=== PATIENT | male | born 1995 | race Caucasian/White ===

== ENCOUNTER 2020-12-19 16:17 | Emergency (ER) | payer SELFPAY ==
[2020-12-19 16:21] VITALS: BP 132/85; PULSE 99; RESP 18; TEMP 36.3; O2SAT 98; BMI 23.7
--- NOTE | 2020-12-19 16:29 | W.ED.MALEGU ---
HPI - Male Genitourinary General: Chief complaint: Urogenital-Male Stated complaint: HPV/VISIBLE WARTS Time Seen by Provider: 12/19/20 16:25 Source: patient Mode of arrival: ambulatory Limitations: no limitations History of Present Illness: HPI Narrative: Patient is a 25-year-old male who noticed some genital warts on his scrotal skin a few months ago. He says they were small and have slowly been getting bigger. Because they are getting bigger he was worried and so he is here to be evaluated. He denies any pain, fever, urethral discharge, dysuria, hematuria. Onset (ago): month(s) Associated symptoms: Deny dysuria, nausea or vomiting Review of Systems General: Reports: 10 or more systems reviewed and unremarkable except in HPI and below Const: Denies: fever(s), chills or body aches Eyes: Denies: change in vision or blurry vision ENMT: Denies: throat pain, enlarged tonsils, odynophagia, hoarseness, mouth pain or swelling of lips/tongue Card: Denies: palpitations, irregular heart rhythm, edema or swelling of feet/ankles Resp: Denies: dyspnea, productive cough or non-productive cough GI: Denies: abdominal pain, nausea or vomiting : Denies: flank pain, dysuria, urinary frequency, urinary urgency or urinary hesitancy Musc: Denies: neck pain, back pain or extremity swelling Skin/Breast: Denies: rash, pruritus or erythema Neuro: Denies: headache(s), numbness in extremities or weakness in extremities Endo: Denies: polyuria, polydipsia or tired all the time Physical Exam Const: COMMON NORMALS: no acute distress, average body habitus, patient oriented x3, no limitations, healthy appearing, alert and well nourished HENMT: COMMON NORMALS: normocephalic, atraumatic and moist oral mucous membranes HEAD & SCALP: normocephalic and atraumatic Neck/C-Spine: COMMON NORMALS: no meningeal signs and no JVD Resp: COMMON NORMALS: normal respiratory effort, No retractions, No use of accessory muscles, clear to auscultation bilaterally and percussion normal AUSCULTATION: clear to auscultation bilaterally PERCUSSION: percussion normal Cardio: COMMON NORMALS: no JVD, regular rate, regular rhythm, S1 normal heart sound present, S2 normal heart sound present, No gallops present (Cardio), No clicks present (Cardio), No murmurs present (Cardio), No rub (Cardio) and Peripheral pulses 2+ throughout RATE: regular rate RHYTHM: regular rhythm HEART SOUNDS: S1 normal heart sound present and S2 normal heart sound present PERIPHERAL PULSES: Peripheral pulses 2+ throughout GI: COMMON NORMALS: Normal to inspection, nondistended, normoactive bowel sounds present, Soft to palpation, non-tender, No hepatosplenomegaly present, no masses and no bruits PALPATION: Yes Soft to palpation and Yes No hepatosplenomegaly present : OTHER: He has several small warts and one larger (about 1cm) wart on the skin of his scrotum. None tender, no penile discharge noted. No blisters seen. Extremity: COMMON NORMALS: normal to inspection, full ROM, capillary refill normal, no calf tenderness and no pedal edema Neuro: COMMON NORMALS: patient oriented x3 SENSORIUM/ORIENTATION: Yes alert MENINGEAL SIGNS: Yes no meningeal signs Skin: COMMON NORMALS: no rashes or lesions noted, no wounds, turgor normal, no jaundice, no petechiae and no mottling GENERAL SKIN EXAM: no rashes or lesions noted and turgor normal Course Vital Signs: Vital signs: Vital Signs Temperature 97.3 F L 12/19/20 16:21 Pulse Rate 87 12/19/20 16:47 Respiratory Rate 18 12/19/20 16:47 Blood Pressure 132/84 12/19/20 16:47 Pulse Oximetry 98 12/19/20 16:47 MDM - Male MDM Narrative: Medical decision making narrative: 25 year old male with uncomplicated genital warts. He is given a prescription of topical antineoplastics and is discharged home. He is to f/u with his PCP. Medical Records: Attestation: I reviewed the patient's medical records. Discharge Plan Discharge Patient Disposition: Home Clinical Impression: Genital warts Condition: Stable Prescriptions: New imiquimod 5 % cream in packet See Rx Instructions .ROUTE .COMPLEX Qty: 1 RF: 0 Discharge Orders: Discharge ED (Routine); Ordered 12/19/20 Ordered By: Xochitl Rodriguez Discharge Diet: Usual diet Discharge Activity: Increase activity as tolerated Patient Instructions: Genital Warts - Male, Genital Warts (ED) Activity Restrictions/Additional Instructions: Return for any new or worsening symptoms. Follow-up with your primary care provider within 3 days. Apply the cream 3 times a week at night until the lesions disappear. Apply the cream only on the warts. Coding Level of Care Code ED Wheel Lacer And Truer for Francisco Javierg Fwd Exam Comprehensive
[2020-12-19 16:47] VITALS: BP 132/84; PULSE 87; RESP 18; O2SAT 98
== END 2020-12-19 16:48 | disposition home or self-care (01) ==
LOC: ER 16:34
PROVIDERS: Emergency Provider Family Medicine
DX: A63.0 Anogenital (venereal) warts (principal)
CPT/HCPCS: 12345; 99281

== ENCOUNTER 2021-12-26 08:05 | Emergency (ER) | payer SELFPAY ==
[2021-12-26 08:09] VITALS: BP 138/81; PULSE 92; RESP 16; TEMP 36.6; O2SAT 99; BMI 25.1
--- NOTE | 2021-12-26 08:15 | ED_ITS ---
HPI - General Adult General: Chief complaint: General Medical Stated complaint: allergic reaction? Time Seen by Provider: 12/26/21 08:06 Source: patient Mode of arrival: ambulatory Limitations: no limitations History of Present Illness: Patient is a 26-year-old male who presents to ED today with a complaint of sore throat and swelling over the past 2 to 3 days. He also states yesterday evening he noticed white spots on his tonsils. Patient seems to think the symptoms might be related to an allergic reaction (?). He has not had any abnormal food/drink exposures. Patient is continuing to eat and drink normally. He is controlling his saliva. No muffled voice. No fevers. He has no swelling to lips or tongue or rash. complaint: sore throat Onset (ago): day(s) Pain Consistency: constant Relieving factors: none Associated symptoms: Reports no associated symptoms; Deny chest pain, dyspnea, headache(s), malaise or rash Treatments prior to arrival: none Review of Systems Const: Denies: fever(s), chills, body aches, change in appetite, fatigue or malaise Eyes: Denies: change in vision, blurry vision, photophobia, eye discomfort or eye discharge ENMT: Reports: throat pain, uvular edema (this is apparently normal for patient ), enlarged tonsils and odynophagia; Denies: hoarseness, swelling of lips/tongue, oral sores, dental pain, ear or mastoid pain, ear discharge, nasal discharge, nasal congestion, epistaxis, post nasal drip or sinus pain Card: Denies: chest pain Resp: Denies: dyspnea, productive cough, non-productive cough or chest congestion Musc: Denies: neck pain, back pain, extremity pain or joint pain Skin/Breast: Denies: rash Neuro: Denies: headache(s) All/Imm: Denies: facial swelling or seasonal rhinorrhea PFSH ED PFSH: Family History Grandmother Diabetes Social History Smoking and tobacco status: current every day smoker cigarettes Packs smoked per day: 0.5 Years cigarettes smoked: 10 Alcohol intake: current Alcohol intake frequency: few times a week Physical Exam Const: COMMON NORMALS: no acute distress, average body habitus, patient oriented x3, no limitations, healthy appearing, alert and well nourished GENERAL APPEARANCE: cooperative HENMT: COMMON NORMALS: normocephalic, atraumatic, hearing grossly normal bilaterally, external ears normal, EAC's normal, TM's normal bilaterally, Normal external nose present, Normal nasal mucous membranes and turbinates present, moist oral mucous membranes and gingiva normal HEAD & SCALP: normal to inspection, normocephalic and atraumatic FACE & SINUS: normal facial exam and sinuses nontender NOSE: Normal external nose present and Normal nasal mucous membranes and turbinates present EXTERNAL EAR: Yes external ears normal EXTERNAL AUDITORY CANAL: EAC's normal TYMPANIC MEMBRANE: TM's normal bilaterally MOUTH: Normal oral and palatal mucosa present, lip normal and tongue normal THROAT: uvula midline, abnormal tonsil bilateral (rare exudates present) hypertrophy and uvular edema (this is apparently normal for patient ); no peritonsillar mass OTHER: no muffled voice, controlling secretions normally Eye: COMMON NORMALS: Equal, round and reactive pupils present, EOMs intact bilaterally and conjunctivae normal GENERAL EYE: appearance normal, both eyes and all related structures CONJUNCTIVA: Yes conjunctivae normal PUPIL: Yes Equal, round and reactive pupils present Neck/C-Spine: COMMON NORMALS: full ROM and no lymphadenopathy Resp: COMMON NORMALS: normal respiratory effort and clear to auscultation bilaterally AUSCULTATION: clear to auscultation bilaterally Cardio: COMMON NORMALS: regular rate and regular rhythm RATE: regular rate RHYTHM: regular rhythm Extremity: GENERAL: Yes normal exam except as noted Neuro: COMMON NORMALS: patient oriented x3 SENSORIUM/ORIENTATION: Yes alert Skin: COMMON NORMALS: no rashes or lesions noted GENERAL SKIN EXAM: no rashes or lesions noted Course 2 Vital Signs: Vital signs: Vital Signs Temperature 97.8 F 12/26/21 08:09 Pulse Rate 92 12/26/21 08:09 Respiratory Rate 16 12/26/21 08:09 Blood Pressure 138/81 12/26/21 08:09 Pulse Oximetry 99 12/26/21 08:09 [facility] - General Adult Medical Decision Making Patient here with complaints of a sore throat over the past couple of days. On physical exam he has mild exudative tonsillitis. 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 He has seen ENT for this and uvulectomy has been recommended however patient does not have insurance and wanted to hold off on this procedure. He was diagnosed with anatomic obstruction of his airway so some of his symptoms today are chronic but worsening now that he has swelling to the tonsils. Patient is eating and drinking normally. He has no respiratory distress on exam. He is controlling his secretions normally. Go ahead and give patient IM dexamethasone here and place patient on antibiotics as a precaution. Recommend he follow-up with ENT if symptoms persist. Strict return to ED precautions verbally given. Lab Data Laboratory Results Group A Strep Rapid Negative (Negative) 12/26/21 08:15 Discharge Plan Discharge Patient Disposition: Home Clinical Impression: Hypertrophy of uvula, Acute tonsillitis Condition: Stable Prescriptions: New amoxicillin 500 mg capsule 1,000 mg PO DAILY 10 Days Qty: 40 0RF No Action imiquimod 5 % cream in packet See Rx Instructions .ROUTE .COMPLEX Qty: 1 0RF Rx Instructions: 4 mm topically3 times a week at night before going to bed until the lesions disappear Discharge Orders: Discharge ED (Routine); Ordered 12/26/21 Ordered By: Kitty Bustillo Activity Restrictions/Additional Instructions: As we discussed you need to return to the emergency department for worsening throat swelling, difficulty swallowing, inability to eat/drink, inability to control your saliva, muffled sounding voice, fevers, or any other concerns you may have. Coding Level of Care Code ED Pneudraulic Systems Mechanic for Marilee Fwdarryl Exam Comprehensive
[2021-12-26 08:56] LABS: Rapid Strep A Test Negative (Negative)
[2021-12-26] MEDS: dexamethasone 10 mg/mL INJ IM (09:07)
== END 2021-12-26 09:43 | disposition home or self-care (01) ==
PROVIDERS: Emergency Provider Physician Assistant
DX: J03.90 Acute tonsillitis, unspecified (principal); K13.79 Other lesions of oral mucosa; F17.210 Nicotine dependence, cigarettes, uncomplicated
CPT/HCPCS: 87081; 87880; 96372; 99283; J1100

== ENCOUNTER 2022-09-03 18:45 | Emergency (ER) | payer SELFPAY ==
[2022-09-03 18:55] VITALS: BP 139/91; PULSE 91; RESP 17; TEMP 36.9; O2SAT 100; BMI 23.8
--- NOTE | 2022-09-03 19:25 | W.ED.GENADLT ---
HPI - General Adult General: Chief complaint: General Medical Stated complaint: sore throat, bleeding from penis Time Seen by Provider: 09/03/22 19:24 History of Present Illness: 26-year-old male patient comes in with respiratory symptoms for approximately 10 days. Patient also was concerned due to some blood when he urinates at times. Patient appears nontoxic. Patient appears in no pain. Patient was concern for STI. Associated symptoms: Deny chest pain, rash or vomiting Review of Systems Const: Denies: fever(s) ENMT: Reports: nasal discharge Card: Denies: chest pain GI: Denies: vomiting or diarrhea : Reports: hematuria; Denies: flank pain or difficulty urinating Skin/Breast: Denies: rash PFSH ED PFSH: Family History Grandmother Diabetes Social History Smoking and tobacco status: current every day smoker cigarettes Packs smoked per day: 0.5 Years cigarettes smoked: 10 Alcohol intake: current Alcohol intake frequency: few times a week Physical Exam Const: COMMON NORMALS: alert HENMT: COMMON NORMALS: normocephalic HEAD & SCALP: normocephalic Neck/C-Spine: COMMON NORMALS: full ROM Resp: COMMON NORMALS: normal respiratory effort and clear to auscultation bilaterally AUSCULTATION: clear to auscultation bilaterally Cardio: COMMON NORMALS: regular rate and regular rhythm RATE: regular rate RHYTHM: regular rhythm GI: COMMON NORMALS: non-tender : COMMON NORMALS: Yes no CVA tenderness BLADDER/KIDNEY EXAM: Yes no CVA tenderness Back/Pelvis: COMMON NORMALS: no CVA tenderness Extremity: COMMON NORMALS: full ROM Neuro: SENSORIUM/ORIENTATION: Yes alert Skin: COMMON NORMALS: turgor normal GENERAL SKIN EXAM: turgor normal Course Vital Signs: Vital signs: Vital Signs Temperature 98.4 F 09/03/22 18:55 Pulse Rate 91 09/03/22 18:55 Respiratory Rate 17 09/03/22 18:55 Blood Pressure 139/91 09/03/22 18:55 Pulse Oximetry 100 09/03/22 18:55 Oxygen Delivery Me thod 09/03/22 18:55 [facility] - General Adult Medical Decision Making 26-year-old male patient comes in today with complaints of blood in his urine at times, and a cough of sore throat for about 1 week. On exam patient appears nontoxic. Posterior pharynx is pink and moist. Patient does have some mild clear drainage. Respirations are even lungs are clear to auscultation. No CVA tenderness. Abdomen soft nontender. Patient is a circumcised male with no sores or lesions. Differential diagnosis includes but not limited to urethritis, STI, renal calculi, idiopathic hematuria, URI, postnasal drip. Patient appears nontoxic no sign of significant respiratory illness. Urinalysis was clean outstanding lab for gonorrhea and chlamydia. Offered treatment for gonorrhea and chlamydia patient wanted to wait for lab results. Reviewed exam with recommendations and follow-up. Patient stated understanding and agreed to plan. Lab Data Laboratory Results Urine Color Yellow (Yellow) 09/03/22 19:45 Urine Appearance Hazy (CLEAR) A 09/03/22 19:45 Urine pH 7 (5-7) 09/03/22 19:45 Ur Specific [place] 1.015 (1.005-1.030) 09/03/22 19:45 Urine Protein Neg (Negative) 09/03/22 19:45 Urine Glucose (UA) Norm (Normal) 09/03/22 19:45 Urine Ketones Negative (Negative) 09/03/22 19:45 Urine Blood Neg (Negative) 09/03/22 19:45 Urine Nitrate Negative (Negative) 09/03/22 19:45 Urine Bilirubin Neg (Negative) 09/03/22 19:45 Urine Urobilinogen Neg mg/dL (Negative) 09/03/22 19:45 Ur Leukocyte Esterase Negative (Negative) 09/03/22 19:45 Discharge Plan Discharge Patient Disposition: Home Clinical Impression: URI (upper respiratory infection) Qualifiers: URI type: unspecified viral URI Qualified Code(s): J06.9 - Acute upper respiratory infection, unspecified Hematuria Qualifiers: Hematuria type: unspecified type Qualified Code(s): R31.9 - Hematuria, unspecified Condition: Stable Prescriptions: No Action imiquimod 5 % cream in packet See Rx Instructions .ROUTE .COMPLEX Qty: 1 0RF Rx Instructions: 4 mm topically3 times a week at night before going to bed until the lesions disappear Discharge Orders: Discharge ED (Routine); Ordered 09/03/22 Ordered By: Pa Elizabeth Discharge Diet: Usual diet Discharge Activity: Increase activity as tolerated Patient Instructions: Upper Respiratory Infection (ED) Activity Restrictions/Additional Instructions: Drink plenty of fluids. Use acetaminophen or ibuprofen for pain. You may contact the emergency department and 2 days to recheck outstanding lab work. Follow-up with primary care in 3 days as needed. Return to ED for new concerns. Coding Level of Care Code ED Medical Physics Researcher for Marilee Gold
[2022-09-03 19:51] LABS: Add Urine Microscopic? NO; Charge for UA Resulting for Rev
[2022-09-03 20:00] LABS: Bilirubin Urine Neg (Negative); Blood Urine Neg (Negative); Glucose Urine UA Norm (Normal); Ketones Urine Negative (Negative); Leukocyte Esterase Urine Negative (Negative); Nitrate Urine Negative (Negative); Protein Urine Neg (Negative); Specific Gravity, Urine 1.015 (1.005-1.030); Urine Appearance Hazy (CLEAR); Urine Color Yellow (Yellow); Urobilinogen Urine Neg (Negative); pH Urine 7 (5-7)
== END 2022-09-03 20:21 | disposition home or self-care (01) ==
PROVIDERS: Emergency Provider Nurse Practitioner Family
DX: J06.9 Acute upper respiratory infection, unspecified (principal); R31.9 Hematuria, unspecified
CPT/HCPCS: 81003; 87491; 87591; 99283

== ENCOUNTER 2022-10-13 10:23 | Emergency (ER) | payer SELFPAY ==
--- NOTE | 2022-10-13 10:28 | CT_ITS ---
WS: [id number] CT HEAD TECHNIQUE: Noncontrast CT of the head obtained from the skullbase to the vertex. CLINICAL INFORMATION: Trauma COMPARISON: None. DLP: 1344.[address] scans at [facility] use at least one of these dose optimization techniques: automated e xposure control; mA and/or kV adjustment per patient size (includes targeted exams where dose is matc hed to clinical indication); or iterative reconstruction. FINDINGS: No evidence of intracranial hemorrhage or mass effect. Ventricular system and basal cisterns are castelan nt. No extra-axial fluid collections. No evidence of mass or mass effect. Normal hernandez-white different iation. Fluid in the maxillary sinuses partially visualized. Normal visualized soft tissues. CT/CT head wo con* [id number] IMPRESSION: 1. No evidence of intracranial hemorrhage or mass effect. 2. Fluid partially visualized in the maxillary sinuses. 3. No acute intracranial findings.
--- NOTE | 2022-10-13 10:28 | CT_ITS ---
WS: [id number] CT CERVICAL TRAUMA TECHNIQUE: Noncontrast CT of the cervical spine with coronal and sagittal reformatted images. CLINICAL INFORMATION: Trauma COMPARISON: None. DLP: 1344.[address] scans at [facility] use at least one of these dose optimization techniques: automated e xposure control; mA and/or kV adjustment per patient size (includes targeted exams where dose is matc hed to clinical indication); or iterative reconstruction. FINDINGS: Straightening with slight reversal of the normal cervical lordosis. Mild spondylitic changes. Disc sp willy narrowing at C5-C6 with slight anterior hypertrophic ridging. Normal craniocervical junction. Nor mal C1-C2 articulation. Dens is normal in appearance. Normal occipital condyles. No high-grade spinal canal narrowing. Normal C1 ring. No evidence of acute fracture or dislocation. Normal prevertebral soft tissues. Mastoids air cells are well aerated. CT/CT cervical spin wo con* [id number] IMPRESSION: No evidence of acute fracture or dislocation. Normal cervical spine.
--- NOTE | 2022-10-13 10:28 | CT_ITS ---
WS: [id number] CT CHEST, ABDOMEN, AND PELVIS TECHNIQUE: Contrast-enhanced CT of the chest, abdomen, and pelvis with coronal and sagittal reformatt ed images. CLINICAL INFORMATION: Trauma COMPARISON: None. DLP: 730.[address] scans at [facility] use at least one of these dose optimization techniques: automated e xposure control; mA and/or kV adjustment per patient size (includes targeted exams where dose is matc hed to clinical indication); or iterative reconstruction. CT CHEST ABDOMEN AND PELVIS: Both lungs are well aerated. No acute pulmonary infiltrates. No pneumothorax. No evidence of pulmonar y contusion. No pleural fluid. Normal caliber thoracic aorta. No evidence of mediastinal hematoma or acute aortic injury. Normal caliber descending thoracic aorta. Normal liver. Normal spleen. Cholecystectomy clips. Mild diffuse fatty infiltration liver. Normal por elena vein and splenic vein. No perihepatic or perisplenic fluid. Normal pancreatic parenchymal enhance ment. Adrenal glands are normal. Normal renal parenchymal enhancement. Normal caliber abdominal aorta .Urine distended bladder. No free fluid in the abdomen or pelvis. No evidence of acute parenchymal injury. Tiny fat-containing umbilical hernia. Normal thoracic spine alignment. Normal lumbar spine alignment. CT/CT chest abd pel w con* IMPRESSION: No acute traumatic findings the chest abdomen or pelvis.
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
[2022-10-13 10:31] VITALS: BP 127/90; PULSE 81; RESP 23; O2SAT 100
[2022-10-13 10:37] LABS: Basophils % 0.6 %; Eosinophils # 0.1 10^3/uL (0.0-0.8); Eosinophils % 1.7 %; Hemoglobin 15.7 g/dL (11.7-16.6); Lymphocytes # 1.6 10^3/uL (0.8-4.8); Mean Corpuscular HGB Conc 32.7 g/dL (30.0-36.0); Mean Corpuscular Hemoglobin 29.6 pg (28.0-34.0); Mean Corpuscular Volume 90.4 fl (80-94); Mean Platelet Volume 9.8 fL (7.4-10.4); Monocytes # 0.4 10^3/uL (0.2-0.9); Monocytes % 7.3 %; Neutrophils % 59.9 %; Nucleated Red Blood Cells % 0 %; Platelet Count 309 10^3/cmm (130-400); Red Blood Count 5.31 10^6/uL (4.1-5.3); Red Cell Distribution Width 13.3 % (12.1-15.1); White Blood Count 5.3 10^3/uL (4.0-10.0)
[2022-10-13] MEDS: iohexol 350 mg/mL 500 mL Btl (per mL) IV (11:00)
[2022-10-13 11:08] VITALS: BP 123/86; PULSE 59; RESP 14; O2SAT 100
[2022-10-13 11:30] LABS: Alanine Aminotransferase 15 U/L (0-41); Albumin Level 4.2 g/dL (3.5-5.2); Alkaline Phosphatase 92 U/L (40-130); Blood Urea Nitrogen 13 mg/dL (6-20); Calcium 9.4 mg/dL (8.5-10.5); Carbon Dioxide 26 mmol/L (22-29); Chloride 102 mmol/L (98-107); Globulin 3.1 g/dL (1.3-4.6); Glomerular Filtration Rate 101.2 mL/min (90-130); Glucose 87 mg/dL (65-115); Osmolality Calculated 287 mOsm/kg (285-295); Sodium 139 mmol/L (136-145); Total Bilirubin 0.4 mg/dL (0.15-1.2); Total Protein 7.3 g/dL (6.6-8.7)
[2022-10-13] MEDS: tetanus-dipt-pertussis 0.5 mL SDV IM (11:38)
[2022-10-13] MEDS: ketorolac 30 mg/mL INJ IVP (11:38)
[2022-10-13 11:46] LABS: Anion Gap 14.6 (5-19); Aspartate Amino Transferase 26 U/L (0-40); Potassium 3.6 mmol/L (3.5-5.1)
[2022-10-13 11:52] VITALS: PULSE 92; O2SAT 99
== END 2022-10-13 11:53 | disposition home or self-care (01) ==
PROVIDERS: Emergency Provider Family Medicine
DX: Z04.1 Encounter for examination and observation following transport accident (principal); F17.210 Nicotine dependence, cigarettes, uncomplicated; V89.2XXA Person injured in unspecified motor-vehicle accident, traffic, initial encounter; S00.01XA Abrasion of scalp, initial encounter; S01.01XA Laceration without foreign body of scalp, initial encounter; Z23 Encounter for immunization
CPT/HCPCS: 70450; 71260; 72125; 74177; 80053; 85025; 90471; 90715; 96374; 99285; J1885; Q9967

== ENCOUNTER 2022-11-13 01:14 | Inpatient (IN) | payer MEDICAID, SELFPAY ==
[2022-11-13 01:15] VITALS: BP 150/95; PULSE 98; RESP 19; TEMP 36.8; O2SAT 98; BMI 23.0
--- NOTE | 2022-11-13 01:24 | ED.C_ITS ---
HPI - Psych General: Chief Complaint: Psychiatric Symptoms Stated Complaint: SI Time Seen by Provider: 11/13/22 01:16 Source: patient, EMS and police Mode of arrival: EMS Limitations: no limitations History of Present Illness: 19-year-old male police called his residence as he had made statements he want to bring the new year in with killing himself. When he arrived he did state that he want to kill himself he told me he wants to kill himself as well and he did try cutting his wrists he has no previous psych admissions he states he does have drug and alcohol use in the past. Associated symptoms: Reports depression and suicidal ideation Review of Systems Const: Denies: fever(s), chills, body aches or change in appetite Eyes: Denies: blurry vision or eye discomfort ENMT: Denies: throat pain or dental pain Card: Denies: chest pain Resp: Denies: dyspnea GI: Denies: abdominal pain, nausea, vomiting or diarrhea : Denies: dysuria Musc: Denies: neck pain or back pain Skin/Breast: Denies: rash Neuro: Denies: headache(s) Psych: Reports: depression and suicidal ideation Tadeo/Lymph: Denies: easy bruising All/Imm: Denies: urticaria PFSH ED PFSH: Medical History (Updated 11/13/22 @ 01:27 by Juani Huff MD) No pertinent past medical history Family History Grandmother Diabetes Social History Smoking and tobacco status: current every day smoker cigarettes Packs smoked per day: 0.5 Years cigarettes smoked: 10 Alcohol intake: current Alcohol intake frequency: few times a week Physical Exam Const: COMMON NORMALS: no acute distress, patient oriented x3 and healthy appearing HENMT: COMMON NORMALS: normocephalic and atraumatic HEAD & SCALP: normocephalic and atraumatic Eye: COMMON NORMALS: Equal, round and reactive pupils present and EOMs intact bilaterally PUPIL: Yes Equal, round and reactive pupils present Neck/C-Spine: COMMON NORMALS: full ROM and supple Chest: COMMONS NORMALS: normal inspection of the chest and normal palpation of entire chest wall Resp: COMMON NORMALS: normal respiratory effort, No retractions, No use of accessory muscles and clear to auscultation bilaterally AUSCULTATION: clear to auscultation bilaterally Cardio: COMMON NORMALS: regular rate, regular rhythm and No murmurs present (Cardio) RATE: regular rate RHYTHM: regular rhythm GI: COMMON NORMALS: Normal to inspection, nondistended, normoactive bowel sounds present, Soft to palpation, non-tender and no masses PALPATION: Yes Soft to palpation Extremity: COMMON NORMALS: full ROM Neuro: COMMON NORMALS: patient oriented x3, moves all extremities and no focal motor deficits Psych: COMMON NORMALS: mental status grossly normal, Normal thought process present and cooperative THOUGHT PROCESS: Normal thought process present THOUGHT CONTENT: Yes Suicidality present Skin: NARRATIVE SKIN EXAM: Multiple bilateral superficial wrist lacerations Course Vital Signs: Vital signs: Vital Signs Temperature 98.2 F 11/13/22 01:15 Pulse Rate 89 11/13/22 01:34 Respiratory Rate 16 11/13/22 01:34 Blood Pressure 150/95 11/13/22 01:15 Pulse Oximetry 98 11/13/22 01:34 Oxygen Delivery Me thod 11/13/22 01:34 MDM - Psych Medical Decision Making Patient presents for suicidal ideation along with cutting his wrist that are superficial not requiring sutures patient is medically cleared spoke to psychiatrist will admit at this time. Lab Data 11/13/22 01:25 11/13/22 01:25 Laboratory Results WBC 7.7 10^3/uL (4.0-10.0) 11/13/22 01:25 RBC 5.13 10^6/uL (4.1-5.3) 11/13/22 01:25 Hgb 15.1 g/dL (11.7-16.6) 11/13/22 01:25 Hct 45.4 % (42.0-52.0) 11/13/22 01:25 MCV 88.5 fl (80-94) 11/13/22 01:25 MCH 29.4 pg (28.0-34.0) 11/13/22 01:25 MCHC 33.3 g/dL (30.0-36.0) 11/13/22 01:25 RDW 13.3 % (12.1-15.1) 11/13/22 01:25 Plt Count 272 10^3/cmm (130-400) 11/13/22 01:25 MPV 9.6 fL (7.4-10.4) 11/13/22 01:25 Neut % (Auto) 64.2 % 11/13/22 01:25 Lymph % (Auto) 22.2 % 11/13/22 01:25 Republic % (Auto) 9.1 % 11/13/22 01:25 Eos % (Auto) 3.5 % 11/13/22 01:25 Baso % (Auto) 0.7 % 11/13/22 01:25 Neut # (Auto) 4.94 10^3/uL (1.8-7.7) 11/13/22 01:25 Lymph # (Auto) 1.7 10^3/uL (0.8-4.8) 11/13/22 01:25 Republic # (Auto) 0.7 10^3/uL (0.2-0.9) 11/13/22 01:25 Eos # (Auto) 0.3 10^3/uL (0.0-0.8) 11/13/22 01:25 Baso # (Auto) 0.1 10^3/uL (0.0-0.1) 11/13/22 01:25 Nucleated RBC % (auto) 0 % 11/13/22 01:25 Nucleated RBCs # 0.0 /100WBC 11/13/22 01:25 Discharge Plan Discharge Patient Disposition: Admitted As Inpatient Clinical Impression: Suicidal ideation Condition: Stable Coding Level of Care Code ED Rag Grader for Marilee Fwd Exam Comprehensive
[2022-11-13] MEDS: LORazepam 2 mg Tablet PO (01:31)
[2022-11-13 01:32] LABS: Basophils # 0.1 10^3/uL (0.0-0.1); Basophils % 0.7 %; Eosinophils # 0.3 10^3/uL (0.0-0.8); Eosinophils % 3.5 %; Hematocrit 45.4 % (42.0-52.0); Hemoglobin 15.1 g/dL (11.7-16.6); Lymphocytes # 1.7 10^3/uL (0.8-4.8); Lymphocytes % 22.2 %; Mean Corpuscular HGB Conc 33.3 g/dL (30.0-36.0); Mean Corpuscular Hemoglobin 29.4 pg (28.0-34.0); Mean Corpuscular Volume 88.5 fl (80-94); Mean Platelet Volume 9.6 fL (7.4-10.4); Monocytes # 0.7 10^3/uL (0.2-0.9); Monocytes % 9.1 %; Neutrophils # 4.94 10^3/uL (1.8-7.7); Neutrophils % 64.2 %; Nucleated Red Blood Cells % 0 %; Platelet Count 272 10^3/cmm (130-400); Red Blood Count 5.13 10^6/uL (4.1-5.3); Red Cell Distribution Width 13.3 % (12.1-15.1); White Blood Count 7.7 10^3/uL (4.0-10.0)
[2022-11-13 01:34] VITALS: PULSE 89; RESP 16; O2SAT 98
[2022-11-13 02:08] VITALS: PULSE 87; RESP 14; O2SAT 98
[2022-11-13 02:10] VITALS: BP 130/91; PULSE 91; RESP 18; TEMP 36.7; O2SAT 100
[2022-11-13 02:10] LABS: Alanine Aminotransferase 10 U/L (0-41); Albumin Level 4.2 g/dL (3.5-5.2); Alkaline Phosphatase 96 U/L (40-130); Anion Gap 14.3 (5-19); Aspartate Amino Transferase 17 U/L (0-40); Blood Urea Nitrogen 11 mg/dL (6-20); Calcium 9.7 mg/dL (8.5-10.5); Carbon Dioxide 22 mmol/L (22-29); Chloride 100 mmol/L (98-107); Globulin 2.4 g/dL (1.3-4.6); Glomerular Filtration Rate 134.3 mL/min (90-130); Glucose 98 mg/dL (65-115); Osmolality Calculated 273 mOsm/kg (285-295); Potassium 4.3 mmol/L (3.5-5.1); Sodium 132 mmol/L (136-145); Total Bilirubin 0.3 mg/dL (0.15-1.2); Total Protein 6.6 g/dL (6.6-8.7)
[2022-11-13 02:11] LABS: Acetaminophen < 5.0 ug/mL (10-30); Alcohol Level < 10 mg/dL (0-10); Salicylate < 0.3 mg/dL (3-10)
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
[2022-11-13 14:00] VITALS: RESP 17
[2022-11-13] MEDS: LORazepam 2 mg/mL INJ 1 mL IM (15:47)
[2022-11-13] MEDS: haloperidol inj 5 mg/mL INJ 1 mL IM (15:47)
[2022-11-13] MEDS: diphenhydrAMINE 50 mg/mL SDV 1mL IM (15:47)
--- NOTE | 2022-11-13 15:48 | PC.NURSE ---
Pt approached the nurses station and stated that he was gonna throw his mattress out the fucking in his room if he didn't get any pain meds and something for anxiety. Nurse and charge nurse administered 2mg Ativan IM 5mg Haldol IM in the left deltoid, 50mg Benadryl IM in Right deltoid. Pt tolerated well, then told us to get the Fuck out of his room.
[2022-11-13] MEDS: OLANZapine 5 mg ODT PO (16:00)
--- NOTE | 2022-11-13 16:52 | NUR.SHIFT ---
Unable to access pt, pt stated for me to leave his room and that he had nothing to say!
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
--- NOTE | 2022-11-14 10:54 | PC.NURSE ---
Patient will not wake long enough to conduct an assessment. Staff from last night stated in handoff that the patient was irate before he went to bed so I do not intend to wake him unless absolutely necessary as it seems in the patient's best interest to get some rest. When patient arises a full assessment will be done. Continued 15 minutes checks will be performed until he arises.
[2022-11-14 14:00] VITALS: BP 112/73; PULSE 112; RESP 18; TEMP 36.4; O2SAT 96
--- NOTE | 2022-11-14 14:46 | W.PM.NPUPNS ---
Subjective NPU Subjective: Patient presents today for the second day as a fairly resistant historian. He did share that that is why he was here was because his does not want anything to do with him so he tried to kill himself or least wanted to. He was ambivalent about most of the questions answering I do not know and rolling his eyes and giving heavy sighs. We discussed the risk, benefits and alternatives of considering medication for his depression and/or irritability and he appeared to understand but did not render a decision. Mental Status Exam MSE Comments: Patient is a disheveled thin white male in hospital scrubs who had cuts on his right wrist that appeared to be healing. He was very noncompliant during the evaluation and appeared agitated occasionally answering questions with, I do not know, yes or no with frequent pauses. There was limited eye contact. No abnormal movements except for mostly psychomotor retardation. Mostly uncooperative with exam and mild to moderate distress. Speech was limited and increased rate decreased volume. His mood was described as fine. His affect was agitated and irritable. His thought process appeared linear but superficial. There was a overall poverty of content. He endorsed suicidal ideation, and he denied any homicidal ideation. There were no delusions reported or noted. He did not appear to be responding to internal stimuli. His attention and concentration appeared fair and memory appeared intact though he did not answer a lot of questions but none were formally tested. He was alert and oriented x3. His insight was limited his impulse control appeared impaired. His judgment was poor. Vitals/I&O/Wt Last Vital Signs Temp 97.6 F 11/14/22 14:00 Pulse 112 H 11/14/22 14:00 Resp 18 11/14/22 14:00 BP 112/73 11/14/22 14:00 Pulse Ox 96 11/14/22 14:00 O2 Del Method 11/13/22 02:11 Weight last 48 hrs Weight 74.843 kg Data NPU 11/13/22 01:25 11/13/22 01:25 A&P Assessment and plan (1) Suicidal ideation: (2) Unspecified mood [affective] disorder: Plan Piotr is a 27-year-old white male admitted with suicidal ideation with unknown psychiatric history who presents with significant discord in his home environment. He would likely benefit from inpatient hospitalization at this time. 1. Obtain drug screen 2. Engage patient in individual group and milieu therapy. 3. Recommend 15-minute checks for safety 4. recommend sober living treatment at the highest level of care to which the patient is willing to commit. 5. We will attempt to gather collateral information 6. Recommend antidepressant. Involuntary Hold Information 96 Hour Hold: 96 Hour Involuntary Admission: Yes 96 Hour Hold Ending Date: 11/21/22 96 Hour Hold Ending Time: 01:44 Attestations NPU Medical Necessity Statement*: Inpatient hospitalization is medically necessary and the clinically appropriate intervention at this time. We will monitor medications and make changes as indicated. His likely length of stay is 4-6 days. Coding Level of Care Code Acute Design Engineering Technician for Francisco Javierg Fwd Diagnoses Suicidal ideation R45.851 Unspecified mood [affective] disorder F39
[2022-11-14] MEDS: LORazepam 2 mg/mL INJ 1 mL IM (19:30)
[2022-11-14] MEDS: diphenhydrAMINE 50 mg/mL SDV 1mL IM (19:30)
[2022-11-14] MEDS: haloperidol inj 5 mg/mL INJ 1 mL IM (19:30)
[2022-11-14 19:34] VITALS: RESP 22
--- NOTE | 2022-11-14 20:08 | PC.NURSE ---
1930-pt observed punching the mosley in his room. states he wants to leave and if he does not get to leave he will hurt staff. attempt made to verbally deescalate unsuccessfully and pt began throwing his pillow and mattress off the bed. PRN IM B52 given. will continue to monitor.
[2022-11-15 06:00] VITALS: PULSE 16
[2022-11-15 14:00] VITALS: RESP 17
--- NOTE | 2022-11-15 16:30 | W.PM.NPUPNS ---
Subjective NPU Subjective: Patient presented today trying to speak for the first time. He had very low frustration tolerance and was mostly going to be discharged reporting that he has no problems in his thoughts about suicide are gone. He had no answers about where he would go, what his plans were about any active addiction, and how he plans on managing his anger which continues to be quite clear. Mental Status Exam MSE Comments: Patient is a disheveled thin white male in hospital scrubs who had cuts on his right wrist that appeared to be healing. He was very noncompliant during the evaluation and appeared agitated occasionally answering questions with, I do not know, yes or no with frequent pauses. There was limited eye contact. No abnormal movements except for mostly psychomotor retardation with occasional agitation. More cooperative with exam and mild to moderate distress. Speech was was more spontaneous but still limited and increased rate decreased volume. His mood was described as fine. His affect was agitated and irritable. His thought process appeared linear but superficial. Thought content: He denied suicidal ideation though it was less than emphatic, and he denied any homicidal ideation. There were no delusions reported or noted. He did not appear to be responding to internal stimuli. His attention and concentration appeared fair and memory appeared intact though he did not answer a lot of questions but none were formally tested. He was alert and oriented x3. His insight was limited his impulse control appeared impaired. His judgment was poor. Vitals/I&O/Wt Last Vital Signs Temp 98.2 F 11/15/22 22:00 Pulse 111 H 11/15/22 22:00 Resp 20 H 11/15/22 22:00 BP 110/76 11/15/22 22:00 Pulse Ox 97 11/15/22 22:00 O2 Del Method 11/15/22 22:00 Data NPU 11/13/22 01:25 11/13/22 01:25 A&P Assessment and plan (1) Suicidal ideation: (2) Unspecified mood [affective] disorder: Plan Piotr is a 27-year-old white male admitted with suicidal ideation with unknown psychiatric history who presents with significant discord in his home environment. He would likely benefit from inpatient hospitalization at this time. 1. Obtain drug screen 2. Engage patient in individual group and milieu therapy. 3. Recommend 15-minute checks for safety 4. recommend sober living treatment at the highest level of care to which the patient is willing to commit. 5. We will attempt to gather collateral information 6. Recommend antidepressant. Involuntary Hold Information 96 Hour Hold: 96 Hour Involuntary Admission: Yes 96 Hour Hold Ending Date: 11/21/22 96 Hour Hold Ending Time: 01:44 Attestations NPU Medical Necessity Statement*: Inpatient hospitalization is medically necessary and the clinically appropriate intervention at this time. We will monitor medications and make changes as indicated. His likely length of stay is 2-4 days. Coding Level of Care Code Acute Regional Extension Service Specialist for [facility] Fwd Diagnoses Suicidal ideation R45.851 Unspecified mood [affective] disorder F39
[2022-11-15 22:00] VITALS: BP 110/76; PULSE 111; RESP 20; TEMP 36.8; O2SAT 97
[2022-11-16 06:00] VITALS: RESP 18
--- NOTE | 2022-11-16 08:14 | PC.NURSE ---
SHIFT ASSESSMENT DENIES SI/HI/AVH UPON ASSESSMENT, BUT IRRITABLE AFFECT NOTED. 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 STAFF ASKED IF ANY FRIEND/FAMILY MEMBER COULD BRING HIS GLASSES IN FROM HOME, PT SHOOK HEAD NO. STAFF EDUCATED PT THAT OUR SOCIAL WORKERS MACEY OR DIONY COULD CALL HIS PLACE OF EMPLOYMENT AND EDUCATE THEM THAT HE WAS IN THE HOSPITAL, PT STATED THAT WOULD ONLY MAKE IT WORSE
[2022-11-16 14:00] VITALS: BP 117/82; PULSE 109; RESP 16; TEMP 36.6; O2SAT 95
[2022-11-16] MEDS: nicotine 21 mg Patch 1 PATCH TRANSDERMA (14:09)
--- NOTE | 2022-11-16 18:02 | W.PM.NPUPNS ---
Subjective NPU Subjective: Patient presented today having his first day where he did not flip out at some point during the conversation. He continue to focus on discharge and conversation. His mother did come by and they discussed the possibility of him being discharged to her place as well as him going to [facility]. He continues to be ambivalent about addiction treatment and dishonest about the role of addiction in his circumstance. We discussed the fact that lying to someone else is not good, but lying to your self is significantly more problematic and makes wellness very difficult. Makes not repeating that error more difficult. Mental Status Exam MSE Comments: Patient is a disheveled thin white male in hospital scrubs who had cuts on his right wrist that appeared to be healing. There was improving eye contact. No abnormal movements except for mild psychomotor retardation. More cooperative with exam in mild distress. Speech was was more spontaneous but still limited and more normal rate, decreased volume. His mood was described as better. His affect was more calm. His thought process appeared linear but superficial. Thought content: He denied suicidal or homicidal ideation. There were no delusions reported or noted. He did not appear to be responding to internal stimuli. His attention and concentration appeared fair and memory appeared unreliable though likely intentionally, but none were formally tested. He was alert and oriented x3. His insight was limited his impulse control appeared impaired. His judgment was poor. Vitals/I&O/Wt Last Vital Signs Temp 98.3 F 11/16/22 19:50 Pulse 89 11/16/22 19:50 Resp 18 11/16/22 19:50 BP 121/81 11/16/22 19:50 Pulse Ox 98 11/16/22 19:50 O2 Del Method 11/16/22 19:50 Data NPU 11/13/22 01:25 11/13/22 01:25 A&P Assessment and plan (1) Suicidal ideation: (2) Unspecified mood [affective] disorder: Plan Piotr is a 27-year-old white male admitted with suicidal ideation with unknown psychiatric history who presents with significant discord in his home environment. He would likely benefit from inpatient hospitalization at this time. 1. Obtain drug screen 2. Engage patient in individual group and milieu therapy. 3. Recommend 15-minute checks for safety 4. recommend sober living treatment at the highest level of care to which the patient is willing to commit. 5. We will attempt to gather collateral information 6. Recommend antidepressant. Involuntary Hold Information 96 Hour Hold: 96 Hour Involuntary Admission: Yes 96 Hour Hold Ending Date: 11/21/22 96 Hour Hold Ending Time: 01:44 Attestations NPU Medical Necessity Statement*: Inpatient hospitalization is medically necessary and the clinically appropriate intervention at this time. We will monitor medications and make changes as indicated. His likely length of stay is 1-3 days. Coding Level of Care Code Acute Supervisor Ticket Sales for [facility] Fwd Diagnoses Suicidal ideation R45.851 Unspecified mood [affective] disorder F39
[2022-11-16 19:50] VITALS: BP 121/81; PULSE 89; RESP 18; TEMP 36.8; O2SAT 98
[2022-11-16] MEDS: trazodone 50 mg Tablet PO (22:34)
[2022-11-16] MEDS: hyDROXYzine 25 mg Capsule 50 MG PO (22:34)
[2022-11-17] MEDS: nicotine 2 mg Gum BUCCAL ×3 (07:33→18:49)
[2022-11-17] MEDS: nicotine 21 mg Patch 1 PATCH TRANSDERMA (08:29)
[2022-11-17 14:00] VITALS: BP 116/79; PULSE 92; RESP 16; TEMP 36.6; O2SAT 98
--- NOTE | 2022-11-17 18:56 | PC.NURSE ---
Pt asking for nicotine gum. Previously had patch on. Said he took it off earlier. When asked what he'd done with the gum he'd received earlier, pt reported he swallowed it. Pt redirected. Reminded he could either wear a patch, chew gum, or use lozenges at the same time. He needed to choose one. Pt verbalized his understanding.
--- NOTE | 2022-11-17 19:39 | P.NPUPN_ITS ---
Subjective NPU Subjective: Patient presented today reporting that he filled out his [facility] application. He reported feeling significantly better and looks the part. No irritability noted or anger and discussion about him being stuck here. We had a long discussion about the importance of him taking this aha moment and making changes. Identifying the role that his drug use is likely playing and the disruption of work, relationships and other areas of his life. We discussed the likely plan for discharge in the morning. Mental Status Exam MSE Comments: Patient is a disheveled thin white male in hospital scrubs who had cuts on his right wrist that appeared to be healing. There was improving eye contact. No abnormal movements except for mild psychomotor retardation. Cooperative with exam in no acute distress. Speech was was more spontaneous with normal rate, decreased volume. His mood was described as better. His affect was more calm. His thought process appeared linear and more organized. Thought content: He denied suicidal or homicidal ideation. There were no delusions reported or noted. He did not appear to be responding to internal stimuli. His attention and concentration appeared fair and memory appeared more reliable, but none were formally tested. He was alert and oriented x3. His insight, judgment and impulse control were all improving. Vitals/I&O/Wt Last Vital Signs Temp 98 F 11/17/22 14:00 Pulse 92 11/17/22 14:00 Resp 16 11/17/22 14:00 BP 116/79 11/17/22 14:00 Pulse Ox 98 11/17/22 14:00 O2 Del Method 11/17/22 14:00 Data NPU 11/13/22 01:25 11/13/22 01:25 A&P Assessment and plan (1) Suicidal ideation: (2) Unspecified mood [affective] disorder: Plan Piotr is a 27-year-old white male admitted with suicidal ideation with unknown psychiatric history who presents with significant discord in his home environment. He would likely benefit from inpatient hospitalization at this time. 1. Tentative plan for discharge in the morning. 2. Engage patient in individual group and milieu therapy. 3. Recommend 15-minute checks for safety 4. recommend sober living treatment at the highest level of care to which the patient is willing to commit. 5. We will attempt to gather collateral information 6. Recommend antidepressant. Involuntary Hold Information 96 Hour Hold: 96 Hour Involuntary Admission: Yes 96 Hour Hold Ending Date: 11/21/22 96 Hour Hold Ending Time: 01:44 Attestations NPU 2 Medical Necessity Statement*: Inpatient hospitalization is medically necessary and the clinically appropriate intervention at this time. We will monitor medic ations and make changes as indicated. His likely length of stay is 1-3 days. Coding Level of Care Code Acute Core Assembly Supervisor for [facility] Javier[facility] Fwd Diagnoses Suicidal ideation R45.851 Unspecified mood [affective] disorder F39
[2022-11-17 20:11] VITALS: BP 117/81; PULSE 87; RESP 18; TEMP 36.3; O2SAT 99
[2022-11-18 06:00] VITALS: RESP 18
[2022-11-18] MEDS: nicotine 4 mg lozenge MUCOUS MEM (08:32)
[2022-11-18] MEDS: nicotine 2 mg Gum BUCCAL (09:59)
[2022-11-18 10:26] VITALS: RESP 18
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
== END 2022-11-18 11:51 | disposition home or self-care (01) | DRG 897 ==
LOC: ER 01:33 → NP 02:16
PROVIDERS: Admitting Provider Psychiatry & Neurology Psychiatry; Emergency Provider Emergency Medicine; Visit Provider Psychiatry & Neurology Psychiatry
DX: F15.13 Other stimulant abuse with withdrawal (principal); R45.851 Suicidal ideations; F39 Unspecified mood [affective] disorder; F17.210 Nicotine dependence, cigarettes, uncomplicated; Z63.0 Problems in relationship with spouse or partner
CPT/HCPCS: 80053; 80307; 85025; 96372; 97150; 97165; 99285; J1200; J1630; J2060

== ENCOUNTER 2023-03-02 02:52 | Emergency (ER) | payer BC, MEDICAID, SELFPAY ==
[2023-03-02 03:04] VITALS: BP 124/83; PULSE 117; RESP 18; TEMP 36.7; O2SAT 96; BMI 24.4
[2023-03-02 03:09] VITALS: BP 124/83; PULSE 117; RESP 16; O2SAT 96
--- NOTE | 2023-03-02 03:10 | W.ED.MALEGU ---
HPI - Male Genitourinary General: Chief complaint: Urogenital-Male Stated complaint: Think he has STD Time Seen by Provider: 03/02/23 02:54 Source: patient Mode of arrival: ambulatory Limitations: no limitations History of Present Illness: 27-year-old male presents here with penile pain dysuria and yellow discharge for the last week. States he has had multiple partners in the last few weeks he is here with another individual has the same symptoms. He denies any testicle pain denies any fevers denies any vomiting or diarrhea. Associated symptoms: Reports dysuria; Deny nausea or vomiting Review of Systems Const: Denies: fever(s) or chills Card: Denies: chest pain GI: Denies: abdominal pain, nausea or vomiting : Reports: dysuria and penile discharge; Denies: testicular pain FOR[facility]LY [facility], [facility] ED PFSH: Medical History (Updated 03/02/23 @ 03:11 by Juani Huff MD) No pertinent past medical history Family History Grandmother Diabetes Social History Smoking and tobacco status: current every day smoker cigarettes Packs smoked per day: 0.5 Years cigarettes smoked: 10 Alcohol intake: current Alcohol intake frequency: few times a week Physical Exam Const: COMMON NORMALS: patient oriented x3 and healthy appearing HENMT: COMMON NORMALS: normocephalic HEAD & SCALP: normocephalic Eye: COMMON NORMALS: conjunctivae normal CONJUNCTIVA: Yes conjunctivae normal Neck/C-Spine: COMMON NORMALS: supple Chest: COMMONS NORMALS: normal inspection of the chest Resp: COMMON NORMALS: normal respiratory effort GI: COMMON NORMALS: Normal to inspection, nondistended, normoactive bowel sounds present, Soft to palpation and non-tender PALPATION: Yes Soft to palpation Extremity: COMMON NORMALS: normal to inspection Neuro: COMMON NORMALS: patient oriented x3 Psych: COMMON NORMALS: mental status grossly normal Course Vital Signs: Vital signs: Vital Signs Temperature 98.1 F 03/02/23 03:04 Pulse Rate 117 H 03/02/23 03:09 Respiratory Rate 16 03/02/23 03:09 Blood Pressure 124/83 03/02/23 03:09 Pulse Oximetry 96 03/02/23 03:09 Oxygen Delivery Me thod Room Air 03/02/23 03:09 MDM - Male Medical Decision Making Patient presents with penile discharge he had multiple partners over the last 2 weeks he is here with another individual who has the same symptoms patient likely has an STD will get a urinalysis but we will go ahead and treat with Rocephin and doxycycline he has no testicle pain he is stable for discharge at this time Discharge Plan Discharge Patient Disposition: Home Clinical Impression: STD (male) Condition: Stable Prescriptions: New doxycycline hyclate 100 mg tablet 100 mg PO BID 10 Days Qty: 20 0RF Discharge Orders: Discharge ED (Routine); Ordered 03/02/23 Ordered By: Juani Huff Discharge Diet: Advance as tolerated Discharge Activity: Resume usual activity Patient Instructions: Sexually Transmitted Diseases (ED) Coding Level of Care Code ED Reception Centre Manager for Marilee Gold
[2023-03-02] MEDS: cefTRIAXone 500 MG in water for injection-sterile 1 ML IM (03:17)
[2023-03-02 03:24] VITALS: PULSE 82; RESP 14; O2SAT 99
--- NOTE | 2023-03-03 14:54 | DCPLANNER ---
sales advisory manager called patient due to no primary care physician - no answer at this time.
--- NOTE | 2023-03-03 16:26 | PC.NURSE ---
pt called due to lost rx. rx called into [facility]
== END 2023-03-02 03:25 | disposition home or self-care (01) ==
PROVIDERS: Emergency Provider Emergency Medicine
DX: A64 Unspecified sexually transmitted disease (principal); F17.210 Nicotine dependence, cigarettes, uncomplicated
CPT/HCPCS: 87491; 87591; 96372; 99284; J0696

== ENCOUNTER 2023-04-19 04:00 | Inpatient (IN) | payer BC, SELFPAY ==
[2023-04-19 04:11] VITALS: BP 139/90; PULSE 99; RESP 18; TEMP 36.6; O2SAT 98; BMI 20.9
[2023-04-19] MEDS: tetanus-dipt-pertussis 0.5 mL SDV IM (04:21)
[2023-04-19 04:26] LABS: Basophils # 0.1 10^3/uL (0.0-0.1); Basophils % 0.7 %; Eosinophils # 0.1 10^3/uL (0.0-0.8); Eosinophils % 0.7 %; Hematocrit 47.2 % (42.0-52.0); Hemoglobin 15.3 g/dL (11.7-16.6); Lymphocytes # 1.9 10^3/uL (0.8-4.8); Mean Corpuscular HGB Conc 32.4 g/dL (30.0-36.0); Mean Corpuscular Hemoglobin 28.5 pg (28.0-34.0); Mean Corpuscular Volume 87.9 fl (80-94); Monocytes # 0.7 10^3/uL (0.2-0.9); Monocytes % 6.9 %; Neutrophils # 6.86 10^3/uL (1.8-7.7); Neutrophils % 71.3 %; Nucleated Red Blood Cells % 0 %; Platelet Count 478 10^3/cmm (130-400); Red Blood Count 5.37 10^6/uL (4.1-5.3); Red Cell Distribution Width 13.7 % (12.1-15.1); White Blood Count 9.6 10^3/uL (4.0-10.0)
[2023-04-19 04:28] VITALS: O2SAT 98
[2023-04-19] MEDS: LORazepam 2 mg Tablet PO (04:37)
--- NOTE | 2023-04-19 04:43 | W.ED.PSYCHS ---
HPI - Psych General: Chief Complaint: Psychiatric Symptoms Stated Complaint: si Time Seen by Provider: 04/19/23 04:01 Source: patient Mode of arrival: ambulatory Limitations: no limitations History of Present Illness: 27-year-old male states been having suicidal ideation over the last 2 days he has history of chronic depression he states he is homeless he abuses meth and states that he is just feeling increasingly worthless he had a plan of slitting his wrist he does have multiple superficial lacerations to his left arm. He denies any worsening improving factors. Associated symptoms: Reports depression and suicidal ideation Review of Systems Const: Denies: fever(s), chills or body aches ENMT: Denies: throat pain or dental pain Card: Denies: chest pain Resp: Denies: dyspnea GI: Denies: abdominal pain, nausea, vomiting or diarrhea Musc: Denies: neck pain or back pain Skin/Breast: Denies: rash Neuro: Denies: headache(s) Psych: Reports: depression and suicidal ideation FOR[facility], [facility] ED PFSH: Medical History No pertinent past medical history Family History Grandmother Diabetes Social History Smoking and tobacco status: current every day smoker cigarettes Packs smoked per day: 0.5 Years cigarettes smoked: 10 Alcohol intake: current Alcohol intake frequency: few times a week Physical Exam Const: COMMON NORMALS: patient oriented x3 HENMT: COMMON NORMALS: normocephalic and atraumatic HEAD & SCALP: normocephalic and atraumatic Eye: COMMON NORMALS: conjunctivae normal CONJUNCTIVA: Yes conjunctivae normal Neck/C-Spine: COMMON NORMALS: full ROM and supple Chest: COMMONS NORMALS: normal inspection of the chest Resp: COMMON NORMALS: normal respiratory effort Cardio: COMMON NORMALS: regular rate and No murmurs present (Cardio) RATE: regular rate GI: INSPECTION: Yes normal to inspection Extremity: COMMON NORMALS: full ROM NARRATIVE EXTREMITY EXAM: Multiple superficial lacerations to left forearm Neuro: COMMON NORMALS: patient oriented x3, moves all extremities and no focal motor deficits Psych: COMMON NORMALS: mental status grossly normal, Normal thought process present and cooperative THOUGHT PROCESS: Normal thought process present Skin: COMMON NORMALS: no rashes or lesions noted and no wounds GENERAL SKIN EXAM: no rashes or lesions noted Course Vital Signs: Vital signs: Vital Signs Temperature 97.8 F 04/19/23 04:11 Pulse Rate 99 04/19/23 04:11 Respiratory Rate 18 04/19/23 04:11 Blood Pressure 139/90 04/19/23 04:11 Pulse Oximetry 98 04/19/23 04:28 Oxygen Delivery Me thod Room Air 04/19/23 04:28 MDM - Psych Medical Decision Making Patient presents for suicidal ideation he is medically cleared patient was placed under 96-hour hold I spoke to Dr. Main and will admit to the psychiatric unit. Medical Records I reviewed the patient's medical records. Lab Data I reviewed the patient's lab results. 04/19/23 04:20 04/19/23 04:20 Laboratory Results WBC 9.6 10^3/uL (4.0-10.0) 04/19/23 04:20 RBC 5.37 10^6/uL (4.1-5.3) H 04/19/23 04:20 Hgb 15.3 g/dL (11.7-16.6) 04/19/23 04:20 Hct 47.2 % (42.0-52.0) 04/19/23 04:20 MCV 87.9 fl (80-94) 04/19/23 04:20 MCH 28.5 pg (28.0-34.0) 04/19/23 04:20 MCHC 32.4 g/dL (30.0-36.0) 04/19/23 04:20 RDW 13.7 % (12.1-15.1) 04/19/23 04:20 Plt Count 478 10^3/cmm (130-400) H 04/19/23 04:20 MPV 9.0 fL (7.4-10.4) 04/19/23 04:20 Neut % (Auto) 71.3 % 04/19/23 04:20 Lymph % (Auto) 20.0 % 04/19/23 04:20 [place] % (Auto) 6.9 % 04/19/23 04:20 Eos % (Auto) 0.7 % 04/19/23 04:20 Baso % (Auto) 0.7 % 04/19/23 04:20 Neut # (Auto) 6.86 10^3/uL (1.8-7.7) 04/19/23 04:20 Lymph # (Auto) 1.9 10^3/uL (0.8-4.8) 04/19/23 04:20 [place] # (Auto) 0.7 10^3/uL (0.2-0.9) 04/19/23 04:20 Eos # (Auto) 0.1 10^3/uL (0.0-0.8) 04/19/23 04:20 Baso # (Auto) 0.1 10^3/uL (0.0-0.1) 04/19/23 04:20 Nucleated RBC % (auto) 0 % 04/19/23 04:20 Nucleated RBCs # 0.0 /100WBC 04/19/23 04:20 Discharge Plan Discharge Patient Disposition: Admitted As Inpatient Clinical Impression: Suicidal ideation, Methamphetamine abuse Condition: Stable Coding Level of Care Code ED Dobby Loom Fixer for Marilee Gold
[2023-04-19 04:48] LABS: Alanine Aminotransferase 27 U/L (0-41); Albumin Level 4.5 g/dL (3.5-5.2); Alkaline Phosphatase 87 U/L (40-130); Anion Gap 17.5 (5-19); Aspartate Amino Transferase 37 U/L (0-40); Blood Urea Nitrogen 14 mg/dL (6-20); Calcium 9.5 mg/dL (8.5-10.5); Carbon Dioxide 25 mmol/L (22-29); Chloride 100 mmol/L (98-107); Globulin 3.8 g/dL (1.3-4.6); Glucose 99 mg/dL (65-115); Osmolality Calculated 287 mOsm/kg (285-295); Potassium 4.5 mmol/L (3.5-5.1); Sodium 138 mmol/L (136-145); Total Bilirubin 0.7 mg/dL (0.15-1.2); Total Protein 8.3 g/dL (6.6-8.7)
[2023-04-19 04:54] LABS: Acetaminophen < 5.0 ug/mL (10-30); Alcohol Level < 10 mg/dL (0-10); Salicylate < 0.3 mg/dL (3-10)
[2023-04-19 05:09] LABS: Amphetamines Screen Urine Positive (Negative); Barbiturates Screen Urine Negative (Negative); Benzodiazepines Screen Urine Negative (Negative); Cocaine Screen Urine Negative (Negative); Opiate Screen Urine Negative (Negative); PCP Screen Urine Negative (Negative); THC Screen Urine Positive (Negative)
--- NOTE | 2023-04-19 05:56 | PC.NURSE ---
Report called to [facility] to NPU room 131.
[2023-04-19 06:00] VITALS: BP 110/80; PULSE 101; RESP 18; TEMP 36.4; O2SAT 100
[2023-04-19 06:10] VITALS: BP 119/71; PULSE 74; RESP 18; O2SAT 100
--- NOTE | 2023-04-19 06:47 | PC.NURSE ---
Pt admitted to NPU, security and RN at side. Pt is guarded and anxious. Pt presents w/approximately 30 cuts to left FA w/island drsgs in place. 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 Pt denies pain to site. Pt admission completed, nicotine patch administered per request. Pt now resting in bed w/o c/o at this time.
--- NOTE | 2023-04-19 10:18 | PC.OT ---
OT EVALUATION ATTEMPTED TWICE THIS A.M. PATIENT IS UNABLE TO AWAKEN AND MAINTAIN ALERTNESS. WILL ATTEMPT AGAIN AT A LATER TIME.
[2023-04-19 14:00] VITALS: BP 102/66; PULSE 101; RESP 18; TEMP 36.7; O2SAT 96
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
[2023-04-19] MEDS: hyDROXYzine 25 mg Capsule 50 MG PO (18:27)
[2023-04-19 21:03] VITALS: BP 96/61; PULSE 96; RESP 18; O2SAT 99
[2023-04-20 06:00] VITALS: BP 114/71; PULSE 79; RESP 16; TEMP 36.6; O2SAT 100
[2023-04-20] MEDS: nicotine 21 mg Patch 1 PATCH TRANSDERMA (06:34)
[2023-04-20] MEDS: hyDROXYzine 25 mg Capsule 50 MG PO (06:38)
[2023-04-20] MEDS: OLANZapine 5 mg ODT PO (08:47)
[2023-04-20 14:00] VITALS: BP 103/68; PULSE 90; RESP 16; TEMP 37; O2SAT 100
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
[2023-04-20 14:42] VITALS: BP 103/68; PULSE 90; RESP 16; TEMP 37; O2SAT 100
--- NOTE | 2023-04-20 16:14 | PC.NURSE ---
written discharge instruction discussed and left with patient. pt stated compliance and understanding.
== END 2023-04-20 16:16 | disposition home or self-care (01) | DRG 897 ==
LOC: ER 04:45 → NP 05:01
PROVIDERS: Admitting Provider Psychiatry & Neurology Psychiatry; Emergency Provider Emergency Medicine; Visit Provider Psychiatry & Neurology Psychiatry
DX: F15.129 Other stimulant abuse with intoxication, unspecified (principal); R45.851 Suicidal ideations; F15.13 Other stimulant abuse with withdrawal; Z59.00 Homelessness unspecified; F17.210 Nicotine dependence, cigarettes, uncomplicated; F39 Unspecified mood [affective] disorder; Z91.52 Personal history of nonsuicidal self-harm; F32.A Depression, unspecified
CPT/HCPCS: 80053; 80306; 80307; 85025; 90471; 90715; 97165; 99238; 99285

== ENCOUNTER 2024-02-01 15:09 | Emergency (ER) | payer SELFPAY ==
[2024-02-01 15:38] VITALS: BP 115/79; PULSE 80; RESP 18; TEMP 36.7; O2SAT 99
--- NOTE | 2024-02-01 15:49 | ED_ITS ---
HPI - Extremity Problem 2 General: Chief complaint: Extremity Problem,Nontraumatic Stated complaint: tingling in arm and hand Time Seen by Provider: 02/01/24 15:49 History of Present Illness: 28-year-old male patient comes in today for complaints of numbness in his right hand. Patient appears nontoxic. Patient also endorses that he is a IV drug user and was concerned that he may have a blood-borne illness. Patient requested testing for HIV and hepatitis. Review of Systems 2 General: Reports: 10 or more systems reviewed and unremarkable except in HPI and below PFSH ED 2 PFSH: Medical History No pertinent past medical history Family History Grandmother Diabetes Social History Smoking and tobacco/nicotine status: current every day tobacco/nicotine user cigarettes Packs smoked per day: 0.5 Years cigarettes smoked: 10 Alcohol intake: current Alcohol intake frequency: few times a week Physical Exam 2 Const: COMMON NORMALS: alert HENMT: HEAD & SCALP: normal to inspection Neck/C-Spine: GENERAL: Yes normal visual inspection Resp: COMMON NORMALS: normal respiratory effort Cardio: COMMON NORMALS: regular rate RATE: regular rate Back/Pelvis: COMMON NORMALS: thoracic and lumbar spine normal to inspection Extremity: COMMON NORMALS: normal to inspection Neuro: SENSORIUM/ORIENTATION: Yes alert Skin: COMMON NORMALS: turgor normal GENERAL SKIN EXAM: turgor normal Course 2 Vital Signs: Vital signs: Vital Signs Temperature 98.0 F 02/01/24 15:38 Pulse Rate 80 02/01/24 15:38 Respiratory Rate 18 02/01/24 15:38 Blood Pressure 115/79 02/01/24 15:38 Pulse Oximetry 99 02/01/24 15:38 Oxygen Delivery Me thod Room Air 02/01/24 15:38 MDM - Extremity (Nontraumatic) Medical Decision Making 28-year-old patient comes in today with complaints of numbness in the right arm. On exam patient appears nontoxic. Evaluation of the right extremity notes no swelling or redness. No vascular erythema or ropiness. Skin is warm and dry. No tenderness is noted in the neck. Vital signs are normal. Differential diagnosis includes not limited to cervical radiculopathy, neuralgia, anxiety about health, possible exposure to blood-borne pathogen. Labs for HIV and hepatitis were drawn and sent. Patient was recommended to follow-up with primary care or medical records for results. CBC CMP was normal. Reassured patient that there was no signs of a DVT in his arm. Discussed recognizing a DVT with increasing swelling and redness to the arm. Believe the numbness is probably secondary to some neuropathy either from the patient's neck or from repetitive use disorder. Lab Data 02/01/24 16:26 02/01/24 16: Laboratory Results WBC 4.96 10^3/uL (3.29-11.43) 02/01/24 16: RBC 5.01 10^6/uL (3.85-5.65) 02/01/24 16: Hgb 14.90 g/dL (11.27-16.99) 02/01/24 16: Hct 44.2 % (37-53) 02/01/24 16: MCV 88.2 fl (82-101) 02/01/24 16: MCH 29.7 pg (27-33) 02/01/24 16: MCHC 33.7 g/dL (30-55) 02/01/24 16: RDW 13.6 % (12.1-15.1) 02/01/24 16: Plt Count 287 10^3/cmm (157-399) 02/01/24 16: MPV 10.0 fL (7.4-10.4) 02/01/24 16: Neut % (Auto) 53.6 % 02/01/24 16: Lymph % (Auto) 33.1 % 02/01/24 16: Callahan % (Auto) 8.1 % 02/01/24 16: Eos % (Auto) 3.6 % 02/01/24 16: Baso % (Auto) 1.4 % 02/01/24 16: Neut # (Auto) 2.66 10^3/uL (1.8-7.7) 02/01/24 16: Lymph # (Auto) 1.6 10^3/uL (0.8-4.8) 02/01/24 16:26 Callahan # (Auto) 0.4 10^3/uL (0.2-0.9) 02/01/24 16:26 Eos # (Auto) 0.2 10^3/uL (0.0-0.8) 02/01/24 16:26 Baso # (Auto) 0.1 10^3/uL (0.0-0.1) 02/01/24 16:26 Nucleated RBC % (auto) 0 % 02/01/24 16: Nucleated RBCs # 0.0 /100WBC 02/01/24 16:26 Sodium 143 mmol/L (136-145) 02/01/24 16:26 Potassium 4.6 mmol/L (3.5-5.1) 02/01/24 16:26 Chloride 107 mmol/L (98-107) 02/01/24 16: Carbon Dioxide 28 mmol/L (22-29) 02/01/24 16:26 Anion Gap 12.6 (5-19) 02/01/24 16:26 BUN 8 mg/dL (6-20) 02/01/24 16:26 Creatinine 1.0 mg/dL (0.7-1.2) 02/01/24 16:26 GFR Calculation 88.3 mL/min (90-130) L 02/01/24 16:26 Glucose 84 mg/dL (65-115) 02/01/24 16:26 Calculated Osmolality 294 mOsm/kg (285-295) 02/01/24 16:26 Calcium 9.1 mg/dL (8.5-10.5) 02/01/24 16:26 Total Bilirubin 0.3 mg/dL (0.15-1.2) 02/01/24 16:26 AST 19 U/L (0-40) 02/01/24 16:26 ALT 25 U/L (0-41) 02/01/24 16:26 Alkaline Phosphatase 76 U/L (40-130) 02/01/24 16:26 Total Protein 7.1 g/dL (6.6-8.7) 02/01/24 16:26 Albumin 4.6 g/dL (3.5-5.2) 02/01/24 16:26 Globulin 2.5 g/dL (1.3-4.6) 02/01/24 16:26 Lipase 23 U/L (13-60) 02/01/24 16:26 No radiology studies performed this visit Discharge Plan Discharge Patient Disposition: Home Clinical Impression: Peripheral neuralgia, History of intravenous drug abuse Condition: Stable Prescriptions: No Action No Known Home Medications Discharge Orders: Discharge ED (Routine); Ordered 02/01/24 Ordered By: Pa Elizabeth Discharge Diet: Usual diet Discharge Activity: Increase activity as tolerated Patient Instructions: Paresthesia (ED) Activity Restrictions/Additional Instructions: Activity as tolerated. Follow-up with primary care for further instructions. Return to ED for new concerns. Coding Level of Care Code ED Clinical Psychologist for Marilee Gold
[2024-02-01 17:00] LABS: Basophils # 0.1 10^3/uL (0.0-0.1); Basophils % 1.4 %; Eosinophils # 0.2 10^3/uL (0.0-0.8); Eosinophils % 3.6 %; Hematocrit 44.2 % (37-53); Lymphocytes # 1.6 10^3/uL (0.8-4.8); Lymphocytes % 33.1 %; Mean Corpuscular HGB Conc 33.7 g/dL (30-55); Mean Corpuscular Hemoglobin 29.7 pg (27-33); Mean Corpuscular Volume 88.2 fl (82-101); Monocytes # 0.4 10^3/uL (0.2-0.9); Monocytes % 8.1 %; Neutrophils # 2.66 10^3/uL (1.8-7.7); Neutrophils % 53.6 %; Nucleated Red Blood Cells % 0 %; Platelet Count 287 10^3/cmm (157-399); Red Blood Count 5.01 10^6/uL (3.85-5.65); Red Cell Distribution Width 13.6 % (12.1-15.1); White Blood Count 4.96 10^3/uL (3.29-11.43)
[2024-02-01 17:21] LABS: Alanine Aminotransferase 25 U/L (0-41); Albumin Level 4.6 g/dL (3.5-5.2); Alkaline Phosphatase 76 U/L (40-130); Anion Gap 12.6 (5-19); Aspartate Amino Transferase 19 U/L (0-40); Blood Urea Nitrogen 8 mg/dL (6-20); Calcium 9.1 mg/dL (8.5-10.5); Carbon Dioxide 28 mmol/L (22-29); Chloride 107 mmol/L (98-107); Creatinine Clr Calc Pharmacy 114.4071; Globulin 2.5 g/dL (1.3-4.6); Glomerular Filtration Rate 88.3 mL/min (90-130); Glucose 84 mg/dL (65-115); Lipase 23 U/L (13-60); Osmolality Calculated 294 mOsm/kg (285-295); Potassium 4.6 mmol/L (3.5-5.1); Sodium 143 mmol/L (136-145); Total Bilirubin 0.3 mg/dL (0.15-1.2); Total Protein 7.1 g/dL (6.6-8.7)
[2024-02-01 18:49] LABS: HIV 1 & 2 Antibody Non-Reactive (Non-Reactiv); HIV 1 & 2 Antigen Non-Reactive (Non-Reactiv)
[2024-02-01 20:30] LABS: Hepatitis A Antibody IgM Non-Reactive (Nonreactive); Hepatitis B Core IgM Non-Reactive (Nonreactive); Hepatitis B Surface Antigen Non-Reactive (Nonreactive); Hepatitis C Virus Antibody Non-Reactive (Nonreactive)
== END 2024-02-01 17:14 | disposition home or self-care (01) ==
PROVIDERS: Emergency Provider Nurse Practitioner Family
DX: G58.8 Other specified mononeuropathies (principal); F19.10 Other psychoactive substance abuse, uncomplicated; F17.210 Nicotine dependence, cigarettes, uncomplicated
CPT/HCPCS: 80053; 80074; 83690; 85025; 87806; 99283